=== PATIENT | female | born 1970 | race Two or more races ===

== ENCOUNTER 2017-05-04 09:29 | Outpatient (CLI) | payer OTHER ==
[~2017-05-04 09:29] MED LIST: EFFEXOR XR150 MG PO; ZITHROMAX500 MG PO; ZYRTEC10 MG PO
== END 2017-05-04 09:36 | disposition home or self-care (01) ==
LOC: SONOGRAMA 09:29
DX: E04.8 Other specified nontoxic goiter (principal)

== ENCOUNTER → 2017-07-06 | Outpatient (CLI) | payer OTHER ==
[~2017-07-06] VITALS: Ht 152.4 cm; Wt 65.8 kg
== END | disposition home or self-care (01) ==
LOC: PPHC 09:05
DX: R07.0 Pain in throat (principal)

== ENCOUNTER → 2017-08-08 | Outpatient (CLI) | payer OTHER | END | disposition home or self-care (01) | LOC: PPHC 15:42 | DX: R21 Rash and other nonspecific skin eruption (principal) ==

== ENCOUNTER 2017-09-26 09:46 | Outpatient (CLI) | payer OTHER | END 2017-09-26 10:11 | disposition home or self-care (01) | LOC: MAMO-SONO 09:46 | DX: Z12.31 Encounter for screening mammogram for malignant neoplasm of breast (principal); N60.01 Solitary cyst of right breast; N60.02 Solitary cyst of left breast ==

== ENCOUNTER 2018-07-11 09:46 | Outpatient (CLI) | payer OTHER | END 2018-07-11 09:57 | disposition home or self-care (01) | LOC: RAD 09:46 | DX: M54.2 Cervicalgia (principal); M54.6 Pain in thoracic spine; M54.5 Low back pain ==

== ENCOUNTER 2018-07-11 14:36 | Outpatient (CLI) | payer OTHER | END 2018-07-11 15:28 | disposition home or self-care (01) | LOC: MAMO-SONO 14:36 | DX: N60.09 Solitary cyst of unspecified breast (principal); E04.8 Other specified nontoxic goiter; Z12.31 Encounter for screening mammogram for malignant neoplasm of breast ==

== ENCOUNTER 2019-04-04 12:33 | Emergency (ER) | payer OTHER ==
[~2019-04-04] VITALS: Ht 170.2 cm; Wt 70.3 kg
[2019-04-04] MEDS ORDERED: LEVOTHYROXINE25 MCG (13:03)
== END 2019-04-04 17:01 | disposition home or self-care (01) ==
LOC: ER 12:33
DX: J06.9 Acute upper respiratory infection, unspecified (principal); B34.9 Viral infection, unspecified

== ENCOUNTER 2019-06-25 14:39 | Outpatient (CLI) | payer OTHER ==
[~2019-06-25 14:39] MED LIST changes: +LEVOTHYROXINE25 MCG
== END 2019-06-25 14:46 | disposition home or self-care (01) ==
LOC: SONOGRAMA 14:39
DX: N85.01 Benign endometrial hyperplasia (principal)

== ENCOUNTER 2019-09-18 13:36 | Outpatient (CLI) | payer OTHER | END 2019-09-18 14:00 | disposition home or self-care (01) | LOC: RAD 13:36 | PROVIDERS: ATTEND Orthopaedic Surgery | DX: M25.571 Pain in right ankle and joints of right foot (principal) ==

== ENCOUNTER 2019-10-22 11:00 | Outpatient (CLI) | payer OTHER | END 2019-10-22 11:07 | disposition home or self-care (01) | LOC: MAMO-SONO 11:00 | PROVIDERS: ATTEND Obstetrics & Gynecology | DX: Z12.31 Encounter for screening mammogram for malignant neoplasm of breast (principal); N60.11 Diffuse cystic mastopathy of right breast; N60.12 Diffuse cystic mastopathy of left breast; E04.1 Nontoxic single thyroid nodule ==

== ENCOUNTER 2019-10-22 11:20 | Outpatient (CLI) | payer OTHER | END 2019-10-22 12:53 | disposition home or self-care (01) | LOC: NUCLEAR 11:20 | PROVIDERS: ATTEND Orthopaedic Surgery | DX: M81.0 Age-related osteoporosis without current pathological fracture (principal) ==

== ENCOUNTER 2019-12-09 08:18 | Outpatient (CLI) | payer OTHER | END 2019-12-09 08:38 | disposition home or self-care (01) | LOC: LAB 08:18 | PROVIDERS: ATTEND Orthopaedic Surgery | DX: M81.8 Other osteoporosis without current pathological fracture (principal); E21.2 Other hyperparathyroidism; E55.9 Vitamin D deficiency, unspecified; M85.88 Other specified disorders of bone density and structure, other site; E56.1 Deficiency of vitamin K ==

== ENCOUNTER 2020-06-20 14:58 | Outpatient (CLI) | payer OTHER | END 2020-06-20 15:29 | disposition home or self-care (01) | LOC: RAD 14:58 | PROVIDERS: ATTEND Internal Medicine Rheumatology | DX: M77.32 Calcaneal spur, left foot (principal); M77.31 Calcaneal spur, right foot; M25.571 Pain in right ankle and joints of right foot; M79.644 Pain in right finger(s); M15.8 Other polyosteoarthritis; M79.642 Pain in left hand; M79.641 Pain in right hand ==

== ENCOUNTER → 2020-08-10 | Outpatient (CLI) | payer OTHER | END | disposition home or self-care (01) | LOC: SONOGRAMA 14:00 | PROVIDERS: ATTEND Internal Medicine Endocrinology, Diabetes & Metabolism | DX: E04.9 Nontoxic goiter, unspecified (principal) ==

== ENCOUNTER → 2021-02-07 | Outpatient (CLI) | payer OTHER | END | disposition home or self-care (01) | LOC: MAMO-SONO 09:15 | PROVIDERS: ATTEND Obstetrics & Gynecology | DX: N60.11 Diffuse cystic mastopathy of right breast (principal); N60.12 Diffuse cystic mastopathy of left breast; Z12.31 Encounter for screening mammogram for malignant neoplasm of breast ==

== ENCOUNTER → 2021-09-25 | Outpatient (CLI) | payer OTHER | END | disposition home or self-care (01) | LOC: SONOGRAMA 14:01 | PROVIDERS: ATTEND Internal Medicine Endocrinology, Diabetes & Metabolism | DX: E04.9 Nontoxic goiter, unspecified (principal) ==

== ENCOUNTER → 2022-07-01 | Emergency (ER) | payer OTHER ==
[~2022-07-01] VITALS: Ht 170.2 cm; Wt 78.0 kg
== END | disposition home or self-care (01) ==
LOC: ER 19:47
DX: S62.317A Displaced fracture of base of fifth metacarpal bone, left hand, initial encounter for closed fracture (principal); W22.8XXA Striking against or struck by other objects, initial encounter; Y93.9 Activity, unspecified; Y92.9 Unspecified place or not applicable; Y99.9 Unspecified external cause status; M79.642 Pain in left hand

== ENCOUNTER 2022-07-05 14:06 | Outpatient (CLI) | payer OTHER | END 2022-07-05 14:11 | disposition home or self-care (01) | LOC: RAD 14:06 | PROVIDERS: ATTEND Orthopaedic Surgery | DX: S62.345A Nondisplaced fracture of base of fourth metacarpal bone, left hand, initial encounter for closed fracture (principal); S62.347A Nondisplaced fracture of base of fifth metacarpal bone, left hand, initial encounter for closed fracture ==

== ENCOUNTER 2022-07-17 11:36 | Outpatient (CLI) | payer OTHER | END 2022-07-17 11:40 | disposition home or self-care (01) | LOC: MAMO-SONO 11:36 | PROVIDERS: ATTEND Obstetrics & Gynecology | DX: Z12.31 Encounter for screening mammogram for malignant neoplasm of breast (principal); N60.11 Diffuse cystic mastopathy of right breast; N60.12 Diffuse cystic mastopathy of left breast ==

== ENCOUNTER 2022-09-27 14:17 | Outpatient (CLI) | payer OTHER | END 2022-09-27 14:30 | disposition home or self-care (01) | LOC: RAD 14:17 | DX: M79.642 Pain in left hand (principal); S62.92XA Unspecified fracture of left hand, initial encounter for closed fracture ==

== ENCOUNTER 2022-09-27 14:18 | Outpatient (CLI) | payer OTHER | END 2022-09-27 14:22 | disposition home or self-care (01) | LOC: NUCLEAR 14:18 | PROVIDERS: ATTEND Internal Medicine Rheumatology | DX: M81.0 Age-related osteoporosis without current pathological fracture (principal) ==

== ENCOUNTER 2022-10-16 08:28 | Outpatient (CLI) | payer OTHER | END 2022-10-16 08:35 | disposition home or self-care (01) | LOC: RAD 08:28 | PROVIDERS: ATTEND General Practice | DX: J20.9 Acute bronchitis, unspecified (principal); R06.02 Shortness of breath ==

== ENCOUNTER 2023-02-20 13:41 | Outpatient (CLI) | payer OTHER | END 2023-02-20 14:07 | disposition home or self-care (01) | LOC: SONOGRAMA 13:41 | PROVIDERS: ATTEND Internal Medicine Endocrinology, Diabetes & Metabolism | DX: R31.29 Other microscopic hematuria (principal) ==

== ENCOUNTER 2023-05-27 10:30 | Outpatient (CLI) | payer OTHER | END 2023-05-27 10:35 | disposition home or self-care (01) | LOC: SONOGRAMA 10:30 | PROVIDERS: ATTEND Internal Medicine Endocrinology, Diabetes & Metabolism | DX: E04.9 Nontoxic goiter, unspecified (principal) ==

== ENCOUNTER 2023-08-06 09:07 | Outpatient (CLI) | payer OTHER | END 2023-08-06 09:44 | disposition home or self-care (01) | LOC: MAMO-SONO 09:07 | PROVIDERS: ATTEND Obstetrics & Gynecology | DX: N60.11 Diffuse cystic mastopathy of right breast (principal); N60.12 Diffuse cystic mastopathy of left breast; Z12.31 Encounter for screening mammogram for malignant neoplasm of breast ==

== ENCOUNTER 2023-11-23 16:03 | Emergency (ER) | payer OTHER ==
[~2023-11-23] VITALS: Ht 170.2 cm; Wt 60.3 kg
[2023-11-23] MEDS ORDERED: KETOROLAC TROMETHAMINE 30 MG VIAL IM STA (16:43)
[2023-11-23] MEDS ORDERED: ORPHENADRINE CITRATE 30 MG/ML AMPUL IM STA (16:44)
[2023-11-23] MEDS ORDERED: KETOROLAC TROMETHAMINE 30 MG VIAL ONE (16:58)
[2023-11-23] MEDS ORDERED: ORPHENADRINE CITRATE 30 MG/ML AMPUL ONE (16:58)
[2023-11-23] MEDS ORDERED: DICLOFENAC POTA50 MG PO (17:56)
[2023-11-23] MEDS ORDERED: CYCLOBENZAPRINE10 MG PO (17:56)
== END 2023-11-23 18:07 | disposition home or self-care (01) ==
LOC: ER 16:04
DX: M54.2 Cervicalgia (principal); M54.50 Low back pain, unspecified; M54.6 Pain in thoracic spine; V43.52XA Car driver injured in collision with other type car in traffic accident, initial encounter; Y93.89 Activity, other specified; Y92.413 State road as the place of occurrence of the external cause

== ENCOUNTER 2024-01-03 16:32 | Emergency (ER) | payer OTHER ==
[~2024-01-03] VITALS: Ht 170.2 cm; Wt 61.2 kg
[~2024-01-03 16:32] MED LIST changes: +CYCLOBENZAPRINE10 MG PO; +DICLOFENAC POTA50 MG PO
[2024-01-03] MEDS ORDERED: KETOROLAC TROMETHAMINE 30 MG VIAL IM STA (17:31)
[2024-01-03] MEDS ORDERED: KETOROLAC TROMETHAMINE 30 MG VIAL ONE (17:36)
== END 2024-01-03 19:32 | disposition home or self-care (01) ==
LOC: ER 16:33
DX: J00 Acute nasopharyngitis [common cold] (principal)

== ENCOUNTER 2024-07-03 08:00 | Outpatient (CLI) | payer OTHER | END 2024-07-03 08:22 | disposition home or self-care (01) | LOC: TOM 08:00 | PROVIDERS: ATTEND Internal Medicine Gastroenterology | DX: Z12.11 Encounter for screening for malignant neoplasm of colon (principal) ==

== ENCOUNTER → 2024-08-20 | Emergency (ER) | payer OTHER ==
[~2024-08-20] VITALS: Ht 170.2 cm; Wt 61.2 kg
[~2024-08-20] MED LIST changes: +SYNTHROID75 MCG PO
== END | disposition home or self-care (01) ==
LOC: ER 13:29
DX: H61.21 Impacted cerumen, right ear (principal)

== ENCOUNTER 2024-10-01 11:26 | Outpatient (CLI) | payer OTHER | END 2024-10-01 11:28 | disposition home or self-care (01) | LOC: NUCLEAR 11:26 | PROVIDERS: ATTEND Obstetrics & Gynecology Reproductive Endocrinology | DX: N95.0 Postmenopausal bleeding (principal); M81.0 Age-related osteoporosis without current pathological fracture ==

== ENCOUNTER 2024-10-01 13:31 | Outpatient (CLI) | payer OTHER | END 2024-10-01 13:39 | disposition home or self-care (01) | LOC: MAMO-SONO 13:31 | PROVIDERS: ATTEND Obstetrics & Gynecology | DX: N60.11 Diffuse cystic mastopathy of right breast (principal); N60.12 Diffuse cystic mastopathy of left breast; Z12.31 Encounter for screening mammogram for malignant neoplasm of breast ==

== ENCOUNTER 2024-11-20 12:56 | Emergency (ER) | payer OTHER ==
[~2024-11-20] VITALS: Ht 170.2 cm; Wt 63.0 kg
[2024-11-20] MEDS ORDERED: VENLAFAXINE HC225 MG PO (13:25)
[2024-11-20] MEDS ORDERED: UNITHROID50 MCG PO (13:25)
== END 2024-11-20 15:01 | disposition home or self-care (01) ==
LOC: ER 12:56
DX: U07.1 COVID-19 (principal)